=== PATIENT | male | born 1935 | race Caucasian/White ===

== ENCOUNTER 2017-11-22 00:23 | Inpatient (IN) | payer MEDICARE ==
[~2017-11-22] VITALS: Ht 172.7 cm; Wt 109.7 kg
[2017-11-22] VITALS (7 sets, daily range): BP systolic 100–127; BP diastolic 40–58
[2017-11-22] MEDS ORDERED: SENNA8.6 MG (00:37)
[2017-11-22] MEDS ORDERED: TRAMADOL 50 MG50 MG PO (00:37)
[2017-11-22] MEDS ORDERED: MIRALAX17 GM (00:37)
[2017-11-22] MEDS ORDERED: ALBUTEROL2.5 MG/0.5 (00:37)
[2017-11-22] MEDS ORDERED: ASPIR 8181 MG (00:38)
[2017-11-22] MEDS ORDERED: VITAMIN D3 COM1 EACH (00:38)
[2017-11-22] MEDS ORDERED: PLAVIX 75 MG TA75 M1 (00:39)
[2017-11-22] MEDS ORDERED: VITAMIN B-121000 MC3 (00:39)
[2017-11-22] MEDS ORDERED: LASIX 40 MG TAB40 M2 (00:40)
[2017-11-22] MEDS ORDERED: NEURONTIN600 MG (00:40)
[2017-11-22] MEDS ORDERED: COLACE100 MG (00:40)
[2017-11-22] MEDS ORDERED: PROSCAR 5MG TABL5 MG (00:40)
[2017-11-22] MEDS ORDERED: PERCOCET 10-321 EACH (00:41)
[2017-11-22] MEDS ORDERED: METFORMIN HCL500 MG PO (00:41)
[2017-11-22] MEDS ORDERED: KLOR-CON 1010 MEQ (00:41)
[2017-11-22] MEDS ORDERED: ZOCOR20 MG (00:42)
[2017-11-22] MEDS ORDERED: FLOMAX0.4 MG (00:42)
[2017-11-22] MEDS ORDERED: PHENERGAN 25 MG25 M1 (00:42)
[2017-11-22] MEDS ORDERED: SPIRONOLACTONE25 M1 (00:42)
[2017-11-22] MEDS ORDERED: ZANAFLEX4 MG (00:42)
[2017-11-22] MEDS ORDERED: IPRAT-ALBUT 0.5-3 ML (00:43)
[2017-11-22] MEDS ORDERED: CO Q-10100 MG (00:43)
[2017-11-22] MEDS ORDERED: LANTUS100 UNIT/M (00:43)
[2017-11-22] MEDS ORDERED: INCRUSE ELLI62.5 MCG (00:43)
[2017-11-22] MEDS ORDERED: HUMALOG100 UNIT/1 (00:44)
[2017-11-22] MEDS ORDERED: REMEDY ANTIFUN TOP (00:45)
[2017-11-22 00:57] LABS: HEMATOCRIT 26.5 % (42.0-52.0); HEMOGLOBIN 8.9 gm/dL (14.0-18.0); MCH 29.8 pg (26.0-34.0); MCHC 33.6 g/dL (28.0-37.0); MCV 88.8 fL (80.0-100.0); MPV 7.3 fl. (7.2-11.1); NUCLEATED RBCS 0 /100WBC; PLATELET COUNT* 312 thou/uL (150-400); RBC 2.98 mil/uL (4.50-6.00); WBC 20.2 thou/uL (4.0-11.0)
[2017-11-22 00:58] LABS: HCO3 21.4 mmol/L (22.0-26.0); PCO2 31.7 mmHg (35.0-45.0); PO2 73.9 mmHg (75.0-100.0); pH 7.447 (7.340-7.450)
[2017-11-22 01:08] LABS: ANION GAP 9 mmol/L (7-16); BUN 32 mg/dL (7-18); CALCIUM 8.4 mg/dL (8.5-10.1); CHLORIDE 98 mmol/L (98-107); CO2 25 mmol/L (21-32); CREATININE 1.8 mg/dL (0.6-1.3); GLUCOSE 133 mg/dL (70-99); POTASSIUM 4.7 mmol/L (3.5-5.1); SODIUM 132 mmol/L (136-145)
[2017-11-22 01:10] LABS: PROTIME 10.2 Seconds (9.20-11.50)
[2017-11-22 01:19] LABS: ALBUMIN 2.7 g/dL (3.4-5.0); ALKALINE PHOSPHATASE 78 U/L (46-116); LIPASE 67 U/L (73-393); NT-PRO BRAIN NAT PEPTIDE 1434 pg/mL (<300); SGOT 14 U/L (15-37); SGPT 13 U/L (30-65); TOTAL BILIRUBIN 0.4 mg/dL (<0.1-1.0); TOTAL PROTEIN 6.5 g/dL (6.4-8.2); TROPONIN-I LEVEL <0.06 ng/mL (<0.06)
[2017-11-22 01:58] LABS: ABSOLUTE LYMPHOCYTES 1.8 thou/uL (0.8-5.3); ABSOLUTE MONOCYTES 0.8 thou/uL (0.0-1.2); ABSOLUTE NEUTROPHILS 17.6 thou/uL (1.6-8.1)
[2017-11-22 01:59] LABS: PLATELET ESTIMATE ADEQUATE
--- NOTE | 2017-11-22 05:13 | NUR ---
REPORT RECEIVED FROM AUGUSTUS. PATIENT RESTED IN BED, NO ACUTE CHANGES. PATIENT DID NOT SHOW SIGNS OF DISTRESS. FALL PRECAUTIONS IN PLACE, CALL LIGHT WITH IN REACH, HOURLY ROUNDING OBSERVED. PATIENT WAS ABLE TO WALK TO BATHROOM AND BACK WITH ASSIST. BED ALARM IS ON. PATIENT HAD BOWEL MOVEMENT. PATIENT IS SHOWING SIGNS OF INCREASED ORIENTATION.
--- NOTE | 2017-11-22 11:04 | EKG ---
[place] [address] ELECTROCARDIOGRAM REPORT Name: JV DEMARCO V Room: [place] [address] ADM IN M.R.#: [id number] Admission: 11/22/17 Attend Phys: Gisela Fermin MD Discharge: Date of : 31 Report #: [id number] THIS REPORT FOR: //name// [facility] ED Test Date: 2017-11-22 Test Time: 00:33:41 Pat Name: JV DEMARCO Department: Room: [facility] Gender: M Pond Tender: GL : 1935 Requested By: Shiela Huynh Order Number: [id number] MD: Govind Jarrell Measurements Intervals Feura Bush Rate: 85 P: 45 HI: 210 QRS: -47 QRSD: 99 T: 44 QT: 332 QTc: 395 Interpretive Statements Sinus rhythm Atrial premature complexes Left axis deviation Abnormal lateral Q waves Anterior infarct, old Baseline wander in lead(s) V4,V5 No previous ECG available for comparison Electronically Signed On 11-22-2017 11:04:30 CDT by Govind Jarrell [email or web address] <ELECTRONICALLY SIGNED> By: Govind Jarrell MD, FAC 11/22/17 1104 0033 0033 Govind Jarrell MD, [facility] /EPI
--- NOTE | 2017-11-22 13:28 | 2DMMODE ---
[place] [address] 2 D/M-MODE ECHOCARDIOGRAM Name: JV DEMARCO V Room: [place] [address] ADM IN [facility]#: [id number] Admission: 11/22/17 Attend Phys: Gisela Fermin MD Discharge: Date of : 31 Date of Service: 11/22/17 1328 Report #: [id number] THIS REPORT FOR: //name// APPROVED REPORT Study performed: 11/22/2017 11:03:52 EXAM: Comprehensive 2D, Doppler, and color-flow Echocardiogram Patient Location: In-Patient Room #: [facility] Status: routine BSA: 2.16 HR: 61 bpm BP: 127/58 mmHg Rhythm: NSR Other Information Study Quality: Good Indications Dyspnea confusion, pneumonia 2D Dimensions IVSd: 10.90 (7-11mm) LVOT Diam: 22.85 (18-24mm) LVDd: 52.66 mm PWd: 11.79 (7-11mm) Ascending Ao: 32.62 (22-36mm) LVDs: 33.52 (25-40mm) Aortic Root: 35.68 mm Volumes Left Atrial Volume (Systole) LA ESV Index: 41.10 mL/m2 Aortic Valve AoV Peak Abram.: 1.63 m/s AO Peak Gr.: 10.57 mmHg LVOT Max P.54 mmHg AO Mean Gr.: 5.77 mmHg LVOT Mean P.14 mmHg LVOT Max V: 0.94 m/s AO V2 VTI: 30.30 cm LVOT Mean V: 0.68 m/s THUY (VTI): 2.85 cm2 LVOT V1 VTI: 21.03 cm Mitral Valve E/A Ratio: 1.08 MV Decel. Time: 193.22 [place] [address] 2 D/M-MODE ECHOCARDIOGRAM Name: JV DEMARCO V Room: [address] IN .R.#: [id number] Admission: 11/22/17 Attend Phys: Gisela Fermin MD Discharge: Date of : 31 Date of Service: 11/22/17 1328 Report #: [id number] MV E Max Abram.: 1.22 m/s MV PHT: 56.03 ms MVA (PHT): 3.93 cm2 TDI E/Lateral E': 13.56 E/Medial E': 12.20 Medial E' Abram.: 0.10 m/s Lateral E' Abram.: 0.09 m/s Pulmonary Valve PV Peak Abram.: 1.04 m/s PV Peak Gr.: 4.34 mmHg Tricuspid Valve RAP Estimate: 5.00 mmHg TR Peak Gr.: 33.94 mmHg RVSP: 39.00 mmHg PA Pressure: 39.00 mmHg Left Ventricle The left ventricle is normal size. There is normal LV segmental wall motion. There is normal left ventricular wall thickness. Left ventricular systolic function is normal. The left ventricular ejection fraction is within the normal range. LVEF is 60-65%. The left ventricular diastolic function is normal. Right Ventricle The right ventricle is normal size. The right ventricular systolic function is normal. Pacemaker lead is present in the right ventricle. Atria The left atrium size is normal. The right atrium size is normal. Aortic Valve Mild aortic valve sclerosis. No aortic regurgitation is present. There is no aortic valvular stenosis. Mitral Valve The mitral valve is normal in structure. Trace mitral regurgitation. No evidence of mitral valve stenosis. Tricuspid Valve The tricuspid valve is normal in structure. Trace tricuspid regurgitation. Mild pulmonary hypertension. Pulmonic Valve The pulmonary valve is normal in structure. There [place] [address] 2 D/M-MODE ECHOCARDIOGRAM Name: JV DEMARCO V Room: [address] IN [facility]#: [id number] Admission: 11/22/17 Attend Phys: Gisela Fermin MD Discharge: Date of : 31 Date of Service: 11/22/17 1328 Report #: [id number] valvular regurgitation. Great Vessels The aortic root is normal in size. IVC is normal in size and collapses >50% with inspiration. Pericardium There is no pericardial effusion. <Conclusion> The left ventricle is normal size. There is normal left ventricular wall thickness. Left ventricular systolic function is normal. The left ventricular ejection fraction is within the normal range. LVEF is 60-65%. The left ventricular diastolic function is normal. The right ventricle is normal size. The left atrium size is normal. Mild aortic valve sclerosis. No aortic regurgitation is present. There is no aortic valvular stenosis. The mitral valve is normal in structure. Trace mitral regurgitation. The tricuspid valve is normal in structure. IVC is normal in size and collapses >50% with inspiration. There is no pericardial effusion. There is normal LV segmental wall motion. Pacemaker lead is present in the right ventricle. <ELECTRONICALLY SIGNED> By: Govind Jarrell MD, FACC 11/22/17 1328 1328 1328 Govind Jarrell MD, FACC /INF
[2017-11-22 15:26] LABS: URINE BILIRUBIN NEGATIVE (Negative); URINE BLOOD NEGATIVE (Negative); URINE CLARITY CLEAR; URINE COLOR YELLOW; URINE GLUCOSE-RANDOM NEGATIVE (Negative); URINE KETONES NEGATIVE (Negative); URINE LEUKOCYTES-REFLEX NEGATIVE (Negative); URINE NITRITE-REFLEX NEGATIVE (Negative); URINE PROTEIN NEGATIVE (Negative); URINE SPECIFIC GRAVITY 1.015 (1.005-1.030); URINE UROBILINOGEN 0.2 E.U./dl (0.2-1.0)
--- NOTE | 2017-11-22 16:13 | NUR ---
INITIAL ASSESSMENT: Pt evaluated for d/c planning needs. Reviewed chart and spoke with nurse, pt and pt's of 25 years. Pt was hospitalized at [facility], and went to [facility] on d/c. Pt has been at [facility] for about a week. Spoke with stroke program coordinator at [facility] and they will accept pt back on d/c from hospital. Spouse said that pt had been living at home with her prior to previous hospitalization and was managing at home. She is hopeful pt will be able to return to [facility] for continued therapy on d/c from hospital, with plans to return home after SNF. Will remain available to assist as needed.
--- NOTE | 2017-11-22 19:47 | NUR ---
RECEIVED REPORT FROM NIGHT NURSE. ASSUMED CARE OF PT AROUND O730. PT A&O X4, VSS, O2 SAT >90% ON 3L PER NC. SOIL EXPERT IN PLACE TRACING A PACED TO AV PACED THIS SHIFT. IV INTACT. PT TOLERATING DIET. PT REPORTED CHRONIC BACK PAIN THIS SHIFT BUT DENIED NEED FOR MEDICATION FOR PAIN. AT BEDSIDE THIS AFTERNOON TO EVENING. STATED TO NURSING STAFF "BE SURE TO CALL ME IF YOU NEED ANYTHING IN THE NIGHT RELATING TO JV". PT UP WITH ASSIST X1 TO VOID AND HAVE BM. PT ALSO USING URINAL TO VOID. PT COMPLETED ECHO AND VQ SCAN THIS SHIFT. PT CURRENTLY WATCHING TV IN BED. CALL LIGHT IS WITHIN REACH. HOURLY ROUNDING IN PLACE. FALL PRECAUTIONS MAINTAINED.
[2017-11-23] VITALS: BP 104/47
--- NOTE | 2017-11-23 03:47 | NUR ---
PATIENT RESTED IN BED. PATIENT DENIES SHORTNESS OF AIR. PATIENT O2 LEVEL DECREASED. PATIENT OXYGEN WAS INCREASED TO 6 LITERS. PAIENT O2 LEVEL IS CURRENTLY WITH IN NORMAL. NO OTHER ACUTE CHANGES. PATIENT DOES NOT APPEAR TO BE IN DISTRESS. FALL PRECAUTIONS IN PLACE, CALL LIGHT WITH IN REACH, HOURLY ROUNDING OBSERVED, BED ALARM ON.
[2017-11-23 04:00] VITALS: BP 100/49
[2017-11-23 05:43] LABS: ABSOLUTE BASOPHILS 0.1 thou/uL (0.0-0.2); ABSOLUTE EOSINOPHILS 0.3 thou/uL (0.0-0.7); ABSOLUTE LYMPHOCYTES 0.9 thou/uL (0.8-5.3); ABSOLUTE MONOCYTES 0.9 thou/uL (0.0-1.2); ABSOLUTE NEUTROPHILS 7.4 thou/uL (1.6-8.1); BASOPHILS 0.6 %; EOSINOPHILS 3.1 %; HEMATOCRIT 22.6 % (42.0-52.0); HEMOGLOBIN 7.7 gm/dL (14.0-18.0); LYMPHOCYTES 9.3 %; MCH 30.1 pg (26.0-34.0); MCHC 33.9 g/dL (28.0-37.0); MCV 88.6 fL (80.0-100.0); MONOCYTES 9.1 %; MPV 7.4 fl. (7.2-11.1); NUCLEATED RBCS 0 /100WBC; PLATELET COUNT* 244 thou/uL (150-400); POLYS 77.9 %; RBC 2.55 mil/uL (4.50-6.00); RDW-CV 13.7 % (10.5-14.5); WBC 9.4 thou/uL (4.0-11.0)
[2017-11-23 05:54] LABS: CALCIUM 7.9 mg/dL (8.5-10.1); CREATININE 1.5 mg/dL (0.6-1.3); POTASSIUM 4.2 mmol/L (3.5-5.1)
--- NOTE | 2017-11-23 07:43 | CON ---
[address] [address] CONSULTATION Name: JV DEMARCO V Room: [address] IN M.R.#: [id number] Admission: 11/22/17 Attend Phys: Gisela Fermin MD Discharge: Date of : 33 Report #: [id number] THIS REPORT FOR: //name// CC: Gisela Morrissey DATE OF SERVICE: 11/22/2017 REQUESTING PHYSICIAN: Dr. Fermin. REASON FOR CONSULTATION: Shortness of breath and infiltrates. DISCUSSION: The patient is a pleasant 82-year-old man with a remote history of tobacco abuse. He does carry a diagnosis of COPD as well as obstructive sleep apnea and congestive heart failure. He was hospitalized recently at [facility]. He was treated for heart failure at that time. This time, I do not have a copy of any of his prior echocardiograms. He was discharged on 11/16/2017. My associate, Dr. Moreno, did see him at that time. He was diuresed there. At the time he was discharged, chest x-ray revealed improvements in the congestive heart failure. His proBNP was 861. He had a BUN of 39, creatinine of 1.4. He did not require O2 during the day. He has known history of sleep apnea. According to the discharge notes, he was to continue sleeping with his home CPAP unit at [facility] and bleed-in 2 liters of oxygen. He did not require any oxygen during the day. The patient notes he was actually doing well with the rehab. He was making progress. He had a fairly sudden onset of a fever yesterday evening. O2 saturations fell in the 70s. Apparently, was confused as well. He was sent to the Emergency Department here. He was febrile. He denies having any difficulty swallowing. Denied any cough or sputum production. Denies any chest pain or palpitations. He has not had any dysuria, but he does note he has had some trouble passing his urine, more so than the baseline. No urine specimen has been obtained yet. When evaluated in the ED, was placed on oxygen. Chest x-ray this morning showed cardiomegaly with diffuse alveolar infiltrates. He had white count of 20,200; hemoglobin 8.9; hematocrit of 26.5. Blood cultures have been sent. Antibiotics have been started. Given the x-ray findings, was being initially covered for possible healthcare-associated pneumonia. He is a very remote smoker. At this time, he is just a fair historian. Does acknowledge having some trouble keeping track of things. Our group did see him when he was at [facility] recently. I do not believe he is an office patient. PAST MEDICAL HISTORY: Remarkable for COPD, severity unknown; [place] [address] CONSULTATION Name: JV DEMARCO V Room: [address] IN R.#: [id number] Admission: 11/22/17 Attend Phys: Gisela Fermin MD Discharge: Date of : 33 Report #: [id number] type 2; recurrent exudative pleural effusions requiring VAT approximately 5 years ago; TIA; GERD; SVT; left total knee replacement; skin cancer removals; coronary artery disease; rotator cuff repair; osteoarthritis. MEDICATIONS: Home CPAP, which he has not been consistently using; Senna; MiraLax p.r.n.; tramadol; nebulizer treatments with DuoNeb; insulin; Zanaflex; Incruse; simvastatin; spironolactone; potassium, p.r.n. oxycodone; metformin; gabapentin; Lasix; Proscar; docusate; B12; Plavix; multivitamins; baby aspirin. SOCIAL HISTORY: . Very remote smoker, quitting about 1993. He is retired from [employer]. REVIEW OF SYSTEMS: ROS was done. Question reliability as he still is somewhat vague on things. He is feeling better today. He notes last night he felt like a whale had come down over him and he cannot recall the events. This morning, he denies any chest pain, cough, sputum production. Denies having any difficulty trying to swallow. He is hungry and requesting more than just straight liquids. He has noted some difficulty trying to pass his urine. This is new for him. He is not having any true dysuria. He did not note any blood in the stools. Denies any hemoptysis. He notes he was making progress with physical therapy at [facility]. He cannot recall what his last cardiac testing had shown. He currently do not have those results from [facility]. PHYSICAL EXAMINATION: GENERAL APPEARANCE: A male who looks stated age. Alert, conversant. His O2 running via nasal cannula. Able to speak in full sentences. HEENT: Head is normocephalic. Sclerae are nonicteric. Mucous membranes do look a little dry. No thrush is seen. NECK: Negative for adenopathy. No JVD is noted. HEART: Regular with periods of irregularity. He has a grade 1/6 systolic murmur. No S3 is heard. LUNGS: Revealed just a few faint crackles heard in the bases. Excursion is equal. There is no wheezing noted. ABDOMEN: Soft without appreciable hepatosplenomegaly. There is no guarding or rebound tenderness. EXTREMITIES: He has no clubbing. Radial pulses are present. He has a well-healed scar present over the left knee. There is some trace pretibial edema. SKIN: Warm and dry. NEUROLOGIC: He is alert and oriented x 3, though his memory for some of the recent events is just fair as he was quite ill when he came in. LABORATORY AND X-RAY FINDINGS: It appears on 11/16/2017, chest x-ray at [facility] showed changes of congestive heart failure were improved. He had a BUN of 39, creatinine of 1.4, potassium 4.1 with a BNP of 861. At that time, his white blood cell count was 12,700, hemoglobin 8.8, hematocrit 26.8[place] [address] CONSULTATION Name: DAVJV Layo Room: [address] IN [facility].#: [id number] Admission: 11/22/17 Attend Phys: Gisela Fermin MD Discharge: Date of : 33 Report #: [id number] room air saturations were in the 90s. Here at [facility], his chemistry this morning, he has a BUN of 32, creatinine 1.8, bicarbonate 25, potassium is 4.7. Calcium 8.4, albumin 2.7. ProBNP 1434. Troponins were unremarkable. Lactic acid was 1.5. Coag studies unremarkable. White blood cell count 20,200. Hemoglobin 8.9, hematocrit 26.9. Does have a left shift. UA is pending. Arterial blood gases done early this morning on 3 liters, he had a pH of 7.45, pCO2 of 32, pO2 of 74, bicarbonate 21 with a saturation of 93%. A chest x-ray shows cardiomegaly. He does have diffuse changes of all consistent with pulmonary edema. Lung scan has been requested and those results are pending. IMPRESSION: 1. Status post acute respiratory failure. Clinically, improved today. Did have a fever up to 102.6. Exact source not clear. Could be pneumonia, though he has not had any cough or sputum production. Possible urine. 2. History of chronic obstructive pulmonary disease, severity unknown. He has not been O2 or steroid dependent. 3. Obstructive sleep apnea. Does have home CPAP. It does not appear he has been overly compliant with that. 4. History of congestive heart failure and atrial arrhythmias. Status of LV unknown. 5. Mild anemia. 6. History of cerebrovascular accidents. 7. Diabetes mellitus type 2. 8. Chronic renal insufficiency. 9. Past history of exudative pleural effusions. Status post VAT. RECOMMENDATIONS: 1. Obtain additional records from [facility]. 2. Follow up cultures. Does need urine checked as well as urine cultures. 3. Continue neb treatments. 4. Activity as tolerated. 5. CPAP while sleeping. <ELECTRONICALLY SIGNED> By: Fatoumata Jimenes MD 11/23/17 0743 [id number] [id number] Jimenes MD /nt
[2017-11-23 08:00] VITALS: BP 111/51
[2017-11-23 11:37] VITALS: BP 105/41
[2017-11-23 13:51] LABS: INFLUENZA A ANTIGEN None Detected (None Detect); INFLUENZA B ANTIGEN None Detected (None Detect)
--- NOTE | 2017-11-23 15:15 | NUR ---
PT O2 SATS IN UPPER 50S AND LOW 60S. PT RESTING IN BED TALKING TO . NO APPARENT DISTRESS. RT PAGED. DR SMITH PAGED AND TO BS
[2017-11-23 15:38] VITALS: BP 131/52
[2017-11-23 15:39] LABS: BE -0.8 mmol/L (-2 to +3); HCO3 23.2 mmol/L (22.0-26.0); PCO2 35.6 mmHg (35.0-45.0); PO2 60.5 mmHg (75.0-100.0); pH 7.432 (7.340-7.450)
--- NOTE | 2017-11-23 15:53 | NUR ---
PT O2 SATS INCREASE TO MID LOWS AFTER O2 @15L HFNC. NO APPARENT DISTRESS. AT BS.
--- NOTE | 2017-11-23 17:50 | NUR ---
PT RESTING IN BED THROUGHOUT SHIFT. PT UP TO CHAIR THIS AFTERNOON BUT SOA AND DESATS QUICKLY. PT ON O2@15 L HFNC. AT BS AND UPDATED ON PLAN OF CARE
[2017-11-23 20:00] VITALS: BP 113/50
[2017-11-24] VITALS: BP 107/47
--- NOTE | 2017-11-24 01:25 | NUR ---
PATIENT RESTED IN BED. PATIENT O2 LEVEL DECREASED TO 80'S WHILE WEARING HOME CIPAP. PATIENT DENIED SHORTNESS OF BREATH, PATIENT PLACE ON BIPAP. O2 LEVEL RETURNED TO NORMAL. FALL PRECAUTIONS IN PLACE, CALL LIGHT WITH IN REACH, HOURLY ROUNDING OBSERVED, BED ALARM ON.
[2017-11-24 04:00] VITALS: BP 118/59
[2017-11-24 04:53] LABS: ABSOLUTE BASOPHILS 0.1 thou/uL (0.0-0.2); ABSOLUTE EOSINOPHILS 0.4 thou/uL (0.0-0.7); ABSOLUTE LYMPHOCYTES 1.5 thou/uL (0.8-5.3); ABSOLUTE NEUTROPHILS 7.1 thou/uL (1.6-8.1); BASOPHILS 0.6 %; EOSINOPHILS 3.8 %; HEMATOCRIT 22.4 % (42.0-52.0); HEMOGLOBIN 7.8 gm/dL (14.0-18.0); LYMPHOCYTES 14.5 %; MCH 30.8 pg (26.0-34.0); MCHC 34.7 g/dL (28.0-37.0); MCV 88.9 fL (80.0-100.0); MONOCYTES 10.2 %; MPV 7.8 fl. (7.2-11.1); NUCLEATED RBCS 0 /100WBC; PLATELET COUNT* 262 thou/uL (150-400); POLYS 70.9 %; RBC 2.52 mil/uL (4.50-6.00); RDW-CV 14.1 % (10.5-14.5)
[2017-11-24 05:15] LABS: CALCIUM 8.3 mg/dL (8.5-10.1); CREATININE 1.6 mg/dL (0.6-1.3); POTASSIUM 4.1 mmol/L (3.5-5.1)
[2017-11-24 08:00] VITALS: BP 104/51
--- NOTE | 2017-11-24 10:45 | NUR ---
RECEIVED REPORT FROM ANNE AND ASSUMED CARE OF PT @ 9515.PT IS A/O X2,VSS,TRACING AV PACED WITH 1ST DEGREE AND PVCS.LUNG SOUNDS ARE COARSE DIMINSHED.LAST BM WAS 11/22/17.IV PATENT AND SALINE LOCKED.PT IS CALM AND COOPERATIVE WITH NO C/O PAIN AT TIME OF ASSESSMENT.PT IS UP WITH ONE TO TWO ASSIST TO CHAIR.PT LEFT RESTING IN BED WITH CALL LIGHT AND FALL PRECAUTIONS IN PLACE.WILL CONTINUE TO MONITOR.
[2017-11-24 12:30] VITALS: BP 111/57
--- NOTE | 2017-11-24 14:39 | NUR ---
CONTINUE TO FOLLOW. PT REMAINS ON HIGH FL O2. TALKED WITH . ANTICIPATE DC TO [facility] WHEN STABLE. UPDATE TO [facility], LEFT VMAIL. WILL FOLLOW.
[2017-11-24 16:34] VITALS: BP 112/57
[2017-11-24 16:44] LABS: URINE BILIRUBIN NEGATIVE (Negative); URINE BLOOD NEGATIVE (Negative); URINE CLARITY CLEAR; URINE COLOR YELLOW; URINE GLUCOSE-RANDOM NEGATIVE (Negative); URINE KETONES NEGATIVE (Negative); URINE LEUKOCYTES-REFLEX NEGATIVE (Negative); URINE NITRITE-REFLEX NEGATIVE (Negative); URINE PROTEIN NEGATIVE (Negative); URINE SPECIFIC GRAVITY 1.015 (1.005-1.030); URINE UROBILINOGEN 0.2 E.U./dl (0.2-1.0)
--- NOTE | 2017-11-24 18:15 | NUR ---
VSS,CARDIAC MONITORING IN PLACE WITH NO CHANGES.PT WEENED DOWN FROM NON-REBREATHER TO 13L O2 NC.PAIN MANAGED WELL WITH PO MEDICATIONS.IV ANTIBIOTICS GIVEN.PT WORKED WITH PHYSICAL THERAPY AND GOT UP TO THE CHAIR FOR SEVERAL HOURS.PT INFORMED OF PLAN OF CARE AND COMMUNICATES UNDERSTANDING.HOURLY ROUNDING COMPLETED FOR PT SAFETY.CALL LIGHT AND FALL PRECAUTIONS IN PLACE. WILL CONTINUE TO FOR DURATION OF SHIFT.
[2017-11-24 20:00] VITALS: BP 99/45
[2017-11-25] VITALS: BP 116/56
[2017-11-25 04:00] VITALS: BP 103/46
[2017-11-25 05:00] LABS: ABSOLUTE EOSINOPHILS 0.3 thou/uL (0.0-0.7); ABSOLUTE LYMPHOCYTES 1.3 thou/uL (0.8-5.3); ABSOLUTE MONOCYTES 0.9 thou/uL (0.0-1.2); ABSOLUTE NEUTROPHILS 7.2 thou/uL (1.6-8.1); BASOPHILS 0.3 %; EOSINOPHILS 3.6 %; HEMATOCRIT 22.6 % (42.0-52.0); HEMOGLOBIN 7.6 gm/dL (14.0-18.0); LYMPHOCYTES 13.6 %; MCHC 33.7 g/dL (28.0-37.0); MCV 88.9 fL (80.0-100.0); MONOCYTES 8.8 %; MPV 7.6 fl. (7.2-11.1); NUCLEATED RBCS 0 /100WBC; PLATELET COUNT* 272 thou/uL (150-400); POLYS 73.7 %; RBC 2.54 mil/uL (4.50-6.00); RDW-CV 14.1 % (10.5-14.5); WBC 9.8 thou/uL (4.0-11.0)
--- NOTE | 2017-11-25 05:04 | NUR ---
ASSUMED PT CARE AT 1930. ASSESSMENT COMPLETED CHARTED. ABLE TO MAKE NEEDS KNOW. PT RESTING IN BED THIS SHIFT. C/O BACK PAIN AND GAVE SCHEDULED PAIN MEDICATION PER P.O. HFNC ON, CHEST XRAY COMPLETED THIS MORNING. WILL CONTINUE TO MONITOR.
[2017-11-25 05:26] LABS: ALBUMIN 2.2 g/dL (3.4-5.0); CALCIUM 8.3 mg/dL (8.5-10.1); CREATININE 1.6 mg/dL (0.6-1.3); MAGNESIUM 1.7 mg/dL (1.8-2.4); TOTAL BILIRUBIN 0.4 mg/dL (<0.1-1.0); TOTAL PROTEIN 6.2 g/dL (6.4-8.2)
[2017-11-25 07:50] VITALS: BP 106/48
--- NOTE | 2017-11-25 10:30 | NUR ---
RECEIVED REPORT FROM SVETLANA AND ASSUMED CARE OF PT @ 2078.PT IS A/OX4,VSS TRACING A PACED WITH 1ST DEGREE ON THE MONITOR.LUNG SOUNDS ARE COARSE DIMINSHED.LAST BM WAS 11/22/17.IV PATENT AND SALINE LOCKED.PT IS CALM AND COOPERATIVE WITH C/O PAIN IN BACK.MEDICATIONS GIVEN WITH RELIEF.PT IS UP WITH ONE ASSIST TO THE CHAIR OR BSC.PT LEFT RESTING IN BED WITH CALL LIGHT AND FALL PRECAUTIONS IN PLACE.WILL CONTINUE TO MONITOR.
[2017-11-25 12:10] VITALS: BP 112/57
--- NOTE | 2017-11-25 14:12 | CON ---
[address] [address] CONSULTATION Name: JV DEMARCO V Room: [place] [address] ADM IN M.R.#: [id number] Admission: 11/22/17 Attend Phys: Gisela Fermin MD Discharge: Date of : 33 Report #: [id number] THIS REPORT FOR: //name// CC: Gisela Morrissey DATE OF SERVICE: 11/24/2017 REASON FOR CONSULTATION: Anemia. HISTORY OF PRESENT ILLNESS: The patient is a very pleasant 82-year-old gentleman, who is currently admitted to the hospital since 2 days due to acute respiratory failure. The patient was brought from his detention facility to the Emergency Room due to fever and hypoxia. He was found to have acute respiratory failure, which was likely related to pneumonia with concern for hospital and community-acquired pneumonia along with COPD exacerbation and is feeling better with treatment. The patient was found to have evidence of anemia as well. His hemoglobin on admission was 8.9 and is currently 7.8. The patient's WBC count was found to be 10 g/dL with platelet count of 262. The patient did have iron studies, which showed some iron deficiency with iron saturation of 15%. His total iron level was 29. His folate was 18.7 and vitamin B12 was 388. His creatinine was found to be stable at 1.8, which has decreased to 1.6. Electrolytes were otherwise also almost normal. Urinalysis did not reveal any infection. The patient was started on IV antibiotics along with oral iron in the form of Niferex 150 mg p.o. daily. The patient gives a history of having a bone marrow biopsy last year at [facility]. He also gives a history of following with our partner, Dr. Nehmeiah Montgomery and saw him approximately 1 year ago. The patient does not give any history of other bone marrow abnormalities including plasma cell dyscrasias otherwise. The patient also does not complain of any headaches, dizziness, nausea, vomiting, constipation, diarrhea, chest pain, palpitations, or other significant symptoms at this time. PAST MEDICAL HISTORY: 1. Anemia. 2. Skin cancer removed from face x 2. 3. Diabetes. 4. 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 5. Left shoulder rotator cuff repair in 2002. 6. Right knee surgery in 1992. 7. Following with Dr. Montgomery for pneumonia. FAMILY HISTORY: Positive for diabetes and hypertension in the [place] [address] CONSULTATION Name: DAVJV V Room: [address] IN [facility]#: [id number] Admission: 11/22/17 Attend Phys: Gisela Fermin MD Discharge: Date of : 33 Report #: [id number] significant hematologic disorders in the family. PERSONAL HISTORY: The patient is a former smoker and does not use any alcohol. Does not have a history of recreational drug use. ALLERGIES: IBUPROFEN and PIROXICAM. CURRENT MEDICATIONS: 1. Niferex 150 mg p.o. daily. 2. Furosemide 40 mg p.o. b.i.d. 3. Insulin Humalog q.a.c. and at bedtime as directed. 4. K-Dur 10 mEq p.o. daily. 5. Vancomycin, renally dosed. 6. Gabapentin 300 mg p.o. t.i.d. 7. Ultram 100 mg p.o. b.i.d. 8. Lovenox 30 mg subcutaneously at bedtime. 9. Zanaflex 4 mg p.o. q.i.d. 10. DuoNeb inhalation every 4 hours as needed. 11. Flomax 0.4 mg p.o. daily. 12. Spironolactone 25 mg p.o. daily. 13. Plavix 75 mg p.o. daily. 14. Cefepime 2 grams IV daily. 15. Aspirin 81 mg p.o. daily. 16. MiraLax 17 grams p.o. b.i.d. 17. Percocet 1 tablet p.o. q.6 hours as needed. 18. Finasteride 5 mg p.o. daily. 19. DuoNeb inhalation every 4 hours. 20. Acetaminophen 650 mg p.o. q.4 hours as needed. REVIEW OF SYSTEMS: A 13-point review of systems obtained. These were negative for any findings except for those discussed in the HPI. PHYSICAL EXAMINATION: VITAL SIGNS: Temperature today was 36.8 degrees centigrade, pulse was 56 beats per minute, respiratory rate was 18 breaths per minute, blood pressure was 112/57 mmHg. GENERAL: Awake, alert, oriented x 3, no apparent distress. HEENT: EOMI/PERRL. Nasal cannula in place. LYMPHATICS: No lymphadenopathy in the neck or supraclavicular areas. CHEST: Clear bilaterally. CARDIOVASCULAR: Regular rate and rhythm. ABDOMEN: Soft, bowel sounds positive. MUSCULOSKELETAL: No significant arthropathy. Gait normal. NEUROLOGIC: No evidence of any focal neurological deficit. INTEGUMENTARY: No evidence of rash or other skin changes. [address] [address] CONSULTATION Name: JV DEMARCO V Room: [address] IN [facility]#: [id number] Admission: 11/22/17 Attend Phys: Gisela Fermin MD Discharge: Date of : 33 Report #: [id number] ASSESSMENT AND PLAN: The patient is a very pleasant 82-year-old male who has a history of following with our partner, Dr. Montgomery, previously for anemia. The patient had a bone marrow biopsy one year ago and is not aware of the results. The patient is currently anemic with evidence of iron deficiency. I agree with oral iron administration given the mild to moderate degree of iron deficiency at this time. I will look for other causes of anemia including MMA as his B12 level is normal along with RBC, folate. I will also plan to complete his myeloma workup with serum protein electrophoresis and immunofixation. I will also plan to check his markers of inflammation including ESR and CRP. I will also plan to review his records at [facility] to determine his bone marrow biopsy results from 1 year ago and the need for repeat bone marrow biopsy or follow up with Dr. Montgomery. This plan was discussed with the patient in detail and all of his questions answered to his satisfaction. I would recommend keeping his hemoglobin above 7 g/dL to minimize symptoms from anemia. Thank you for allowing us to participate in care of this pleasant patient. <ELECTRONICALLY SIGNED> By: Marques Sainz MD 11/25/17 1412 1843 [id number] Kelvin Sainz MD /nt
[2017-11-25 16:00] VITALS: BP 120/51
--- NOTE | 2017-11-25 16:56 | NUR ---
VSS,CARDIAC MONITORING IN PLACE WITH NO CHANGES.PT IS ON 15L O2 NC DUE TO SLEEP APNEA AND REFUSAL TO WEAR HOME CPAP OR HOSPITAL BIPAP.PAIN MANAGED WELL WITH PO MEDICATIONS.IV PATENT AND SALINE LOCKED.IV ANTIBIOTICS GIVEN.MRSA NASAL SWAB COLLECTED.PT WORKED WITH PHYSICAL THERAPY AND WAS UP TO CHAIR.HOURLY ROUNDING COMPLETED FOR PT SAFETY.CALL LIGHT AND FALL PRECAUTIONS IN PLACE.WILL CONTINUE TO MONITOR FOR DURATION OF SHIFT.
[2017-11-25 20:00] VITALS: BP 87/33
[2017-11-26] VITALS (12 sets, daily range): BP systolic 97–139; BP diastolic 37–57
--- NOTE | 2017-11-26 03:17 | NUR ---
ASSUMED PT CARE AT 1930. ASSESSMENT COMPLETED CHARTED. PT DROWSY ALL NIGHT, [id number], PT HAS BEEN INCONTINENT DUE TO NOT FEELING WELL AND NOT ABLE TO MAKE HIS NEEDS KNOWN. PT ON BIPAP AT THIS TIME DURING SLEEP. WILL CONTINUE TO MONITOR.
[2017-11-26 04:53] LABS: HEMATOCRIT 22.4 % (42.0-52.0); HEMOGLOBIN 7.6 gm/dL (14.0-18.0); MCHC 33.7 g/dL (28.0-37.0); MPV 7.6 fl. (7.2-11.1); NUCLEATED RBCS 0 /100WBC; PLATELET COUNT* 254 thou/uL (150-400); RBC 2.51 mil/uL (4.50-6.00); RDW-CV 14.3 % (10.5-14.5); WBC 11.4 thou/uL (4.0-11.0)
[2017-11-26 05:02] LABS: ALBUMIN 2.3 g/dL (3.4-5.0); CALCIUM 8.5 mg/dL (8.5-10.1); CREATININE 1.8 mg/dL (0.6-1.3); MAGNESIUM 1.9 mg/dL (1.8-2.4); POTASSIUM 4.5 mmol/L (3.5-5.1); TOTAL BILIRUBIN 0.5 mg/dL (<0.1-1.0); TOTAL PROTEIN 6.6 g/dL (6.4-8.2)
[2017-11-26 06:29] LABS: ABSOLUTE LYMPHOCYTES 0.5 thou/uL (0.8-5.3); ABSOLUTE MONOCYTES 0.3 thou/uL (0.0-1.2); ABSOLUTE NEUTROPHILS 10.6 thou/uL (1.6-8.1); ATYPICAL LYMPHS 1 %
[2017-11-26 06:30] LABS: POLYCHROMASIA 1+
[2017-11-26 06:31] LABS: MACROCYTES 1+; PLATELET ESTIMATE ADEQUATE
[2017-11-26 06:32] LABS: POIKILOCYTOSIS 1+
--- NOTE | 2017-11-26 08:30 | NUR ---
ASSUMED PT. CARE AND RECEIVED REPORT AT 0730. PT A/OX4, VSS, MONITOR ON TRACING SR 1ST. PT. C/O PAIN IN BACK 09/15 CURRENTLY. ON NRB MASK @ 98% WITH CONGESTED COUGH AND COARSE LUNG RODRIGES. FULL ASSESSMENT COMPLETED, REFER TO CHARTING. FALL PRECAUTIONS IN PLACE, WILL CONTINUE WITH PLAN OF CARE.
--- NOTE | 2017-11-26 10:00 | NUR ---
PT. CHANGED TO HFNC @ 15L TO EAT BREAKFAST. APPROX. 10 MINUTES LATER PT. O2 MID 70'S. PT. PLACED BACK ON NRB MASK AT >90%
[2017-11-26 12:59] LABS: BE -1.1 mmol/L (-2 to +3); HCO3 23.8 mmol/L (22.0-26.0); PCO2 40.1 mmHg (35.0-45.0); PO2 61.5 mmHg (75.0-100.0); pH 7.391 (7.340-7.450)
--- NOTE | 2017-11-26 13:05 | CON ---
[address] [address] CONSULTATION Name: JV DEMARCO V Room: [address] IN M.R.#: [id number] Admission: 11/22/17 Attend Phys: Gisela Fermin MD Discharge: Date of : 31 Report #: [id number] THIS REPORT FOR: //name// CC: Gisela Morrissey DATE OF SERVICE: 11/25/2017 INFECTIOUS DISEASE CONSULTATION: REASON FOR CONSULTATION: I was asked to evaluate for bilateral pulmonary infiltrates. HISTORY OF PRESENT ILLNESS: The patient is an 82-year-old with underlying COPD, obstructive sleep apnea, congestive heart failure history hospitalized at [facility] with congestive heart failure. Discharged to acute rehab on 11/16/2017. Once there, he developed worsening shortness of breath and is now hospitalized for further evaluation. He also noted acute onset of fever and chills. He had associated confusion. He has had minimal cough or sputum production. Denies any pleuritic chest pain or hemoptysis. He remains on oxygen per nasal cannula. No pharyngitis symptoms. No postnasal drip. He has had some difficulty swallowing. His chest x-ray showed bilateral pulmonary infiltrates. Since being hospitalized here for last 3 days, his initial temperature was 102.6 degrees and he has been afebrile since. He has been treated with vancomycin and cefepime. His sputum culture has shown normal malik including yeast. His blood cultures remain negative. His chest x-ray showed cardiomegaly with right lateral pleural fluid and extensive bilateral pulmonary infiltrates. He has some consolidation in the right mid and upper lung, which has progressed. He has had a V/Q scan, which was low probability. He has had ultrasound of lower extremity, which showed no evidence of DVT and he has had an ultrasound of the kidneys, which were unremarkable other than distended urinary bladder. PAST MEDICAL HISTORY: COPD, diabetes, congestive heart failure, stroke, chronic kidney disease, coronary artery disease, hyperlipidemia, has had COPD and obstructive sleep apnea, right knee surgery, left shoulder rotator cuff surgery, skin cancers removed. FAMILY HISTORY: Noncontributory. SOCIAL HISTORY: He is a past smoker. No significant alcohol intake. ALLERGIES: IBUPROFEN AND PIROXICAM. MEDICATIONS: As noted on his MAR including vancomycin and cefepime [place] [address] CONSULTATION Name: DAVJV V Room: [address] IN [facility]#: [id number] Admission: 11/22/17 Attend Phys: Gisela Fermin MD Discharge: Date of : 33 Report #: [id number] REVIEW OF SYSTEMS: Denies any neurologic issues, mood disorder, skin rashes, lymphadenopathy. He denies any diabetes or thyroid disease. No bleeding disorder. PULMONARY: As above. CARDIOVASCULAR: As above. GASTROINTESTINAL: Negative. GENITOURINARY: Negative. JOINTS: Negative. PHYSICAL EXAMINATION: GENERAL: The patient was sitting up in his chair, alert and cooperative, pleasant, no acute distress, on oxygen per nasal cannula. HEENT: Eyes were nonicteric with no conjunctivitis. MOUTH: Edentulous with dentures in place with no other lesions. NECK: Supple, with no JVD, thyromegaly, or mass. BACK: Nontender. No CVA tenderness. LUNGS: With bibasilar crackles, left greater than right. Decreased breath sounds in the right base posteriorly. No consolidation and no rub. Anterior chest showed a permanent pacemaker. HEART: Regular, without murmur, gallop or rub. ABDOMEN: Obese, soft, nontender, no hepatosplenomegaly or mass. EXTREMITIES: He had no significant peripheral edema. Extremities otherwise unremarkable with no cyanosis. NEUROLOGIC: Nonfocal with normal cranial nerves. Strength was normal. Sensation intact. Mood was normal. No palpable adenopathy. SKIN: Without rash. LABORATORY STUDIES: Mostly as noted above. Sedimentation rate 126. BNP was 3700. CRP was 165. Sodium 131, potassium 4, bicarbonate 28, creatinine 1.6. Liver function tests normal. Albumin at 2.2, hemoglobin 7.6, white count was 9.8, platelet count was 272,000. Urinalysis unremarkable. Sputum again showed normal malik. Blood cultures are negative. Vancomycin trough was 14. Influenza swab was negative. Immunoglobulins are pending. SPEP pending. MRSA screen negative. IMPRESSION: An 82-year-old with progressive pulmonary infiltrates. Cultures remain negative. No MRSA colonization identified. The patient has been hospitalized for an extended period of time. He initially did have fever, but he has had no leukocytosis. No evidence of urinary tract infection or intra-abdominal infection. I am suspecting that most of his pulmonary infiltrates are due to congestive heart failure. The echocardiogram showed a normal EF, however, and the diastolic function was normal. Noncardiogenic pulmonary edema would also be a consideration then. Infectious etiology due to [place] [address] CONSULTATION Name: JV DEMARCO V Room: [place] [address] ADM IN M.R.#: [id number] Admission: 11/22/17 Attend Phys: Gisela Fermin MD Discharge: Date of : 33 Report #: [id number] RECOMMENDATION: Since no evidence of MRSA has been identified, we will discontinue the vancomycin. We will switch to Zosyn for gram-negative coverage and aspiration potential. I would still consider diuresis as much as possible. It is noted that his BNP was elevated. He does have evidence of chronic kidney disease. We will also check for viral respiratory panel and legionella. <ELECTRONICALLY SIGNED> By: Baljeet Vidales MD 11/26/17 1305 1715 [id number] Vidales MD /nt
[2017-11-26 17:21] LABS: CALCIUM 8.3 mg/dL (8.5-10.1); POTASSIUM 4.2 mmol/L (3.5-5.1)
--- NOTE | 2017-11-26 20:05 | NUR ---
RN RESUMED CARE OF PT THIS AFTERNOON WHEN PT TRANSFERRED FROM MEDICAL UNIT TO ICU DUE TO INCREASED WORK OF BREATHING AND 02 NEEDS. PT ON HIGH FLOW NASAL CANNULA WITH HUMIDITY AND TOLERATING WELL, O2 SATS IN THE MID 90'S. TOLERATING PO INTAKE WITHOUT SIGNS OF ASPIRATION. PETTY IN PLACE DUE TO BLADDER DISTENTION AND 850CC OUT THIS SHIFT. VSS. AFEBRILE. PT ALERT AND ORIENTED TO PERSON AND PLACE. DISORIENTED TO TIME AND WAXES AND WEANS REGARDING SITUATION. PT DENIES PAIN. FAMILY AT BEDSIDE AND DENIES FURTHER QUESTIONS/CONCERNS.
[2017-11-27] VITALS (12 sets, daily range): BP systolic 84–130; BP diastolic 36–62
[2017-11-27 04:16] LABS: HEMATOCRIT 22.5 % (42.0-52.0); HEMOGLOBIN 7.6 gm/dL (14.0-18.0); MCHC 33.9 g/dL (28.0-37.0); MCV 88.5 fL (80.0-100.0); MPV 7.2 fl. (7.2-11.1); RBC 2.55 mil/uL (4.50-6.00); RDW-CV 14.3 % (10.5-14.5); WBC 14.4 thou/uL (4.0-11.0)
[2017-11-27 04:36] LABS: ALBUMIN 2.3 g/dL (3.4-5.0); CALCIUM 8.7 mg/dL (8.5-10.1); MAGNESIUM 2.2 mg/dL (1.8-2.4); POTASSIUM 4.3 mmol/L (3.5-5.1); TOTAL BILIRUBIN 0.4 mg/dL (<0.1-1.0); TOTAL PROTEIN 6.5 g/dL (6.4-8.2)
--- NOTE | 2017-11-27 06:27 | NUR ---
PROGRESSING TOWARD GOALS. VSS. BIPAP AT HS, OFF AT 0600 PER PT REQUEST. PT NOW ON HFC WITH HUMIDIFIED HEATED CIRCUIT AT THIS TIME. O2 SAT REMAINED >90% ON HFC & BIPAP, DESATS QUICKLY WHEN ON RA BRIEFLY. PT APPEARED TO SLEEP WELL THROUGH THE NIGHT. AFEBRILE. CALL LIGHT WITHIN REACH.
--- NOTE | 2017-11-27 18:43 | NUR ---
INTERDISCIPLINARY ROUNDS: PT.TRANSFERRED TO ICU LAST EVENING DUE TO INCREASE O2 REQUIREMENTS. HE IS ORIENTED WHEN AWAKE. HE STILL PLANS TO RETURN TO [facility] WHEN HE IS READY FOR DISCHARGE FROM THE HOSPITAL.
--- NOTE | 2017-11-27 18:56 | NUR ---
PT TRANS TO ROOM 211 VIA BED FROM ICU. VSS THROUGHOUT SHIFT. PT VERY SOA WITH MOVEMENT IN BED. PT DESATS WHILE EATING WELL. PT REMAINS ON HIGHFLOW AT 35%. PAIN WELL CONTROLLED WITH SCHEDULED PAIN MEDICATION. NO OTHER COMPLAINTS OF PAIN. REPORT GIVEN TO [employer] SALES CONSULTANT.
[2017-11-27 21:06] LABS: IgA 238 mg/dL (61-437); IgG 701 mg/dL (700-1600); IgM 107 mg/dL (15-143)
[2017-11-27 23:10] LABS: ADENOVIRUS Negative (Negative); INFLUENZA A Negative (Negative); INFLUENZA B Negative (Negative); METAPNEUMOVIRUS Negative (Negative); PARAINFLUENZA 1 Negative (Negative); PARAINFLUENZA 2 Negative (Negative); PARAINFLUENZA 3 Negative (Negative); RHINOVIRUS Negative (Negative); RSV A Negative (Negative); RSV B Negative (Negative)
[2017-11-28] VITALS: BP 121/55
[2017-11-28 08:00] VITALS: BP 140/40
--- NOTE | 2017-11-28 08:26 | NUR ---
PATIENT HAS BEEN AGITATED AND IRRITABLE DURING SHIFT. PATIENT YELLING AT NURSING STAFF AND VERY DEMANDING AND ANXIOUS. PATIENT PULLING BIPAP MASK OFF. PATIENT 02 SATURATION DECREASES WHEN PATIENT REMOVES BIPAP. PATIENT VERY FORGETFUL AND CONFUSED AT TIMES. RESPIRATORY CALLED WHEN PATIENT REMOVED BIPAP AND 02 SATURATION DECREASED. BIPAP 02 INCREASED BY RESPIRATORY TO 90%. PATIENT TURNED EVERY 2 HRS AND NEEDED. IV IN LEFT AC-SL. IV ABT GIVEN WITHOUT ANY ADVERSE SIDE EFFECTS NOTED. PETTY TO DEPENDENT DRAINAGE WITH YELLOW URINE OUTPUT. MEDICATIONS GIVEN ORDERED AND CHARTED, ALTHOUGH PATIENT SLEEPING AND NOT WANTING TO TAKE SOME MEDICATIONS. FALL PRECAUTIONS IN PLACE AND HOURLY ROUNDS MADE. WILL CONTINUE WITH PLAN OF CARE AND NURSING TO MONITOR.
[2017-11-28 11:15] LABS: BE 3.4 mmol/L (-2 to +3); HCO3 27.8 mmol/L (22.0-26.0); PCO2 41.7 mmHg (35.0-45.0); PO2 69.7 mmHg (75.0-100.0); pH 7.442 (7.340-7.450)
--- NOTE | 2017-11-28 11:16 | EKG ---
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 /EPI
[2017-11-28 11:32] LABS: ABSOLUTE LYMPHOCYTES 0.9 thou/uL (0.8-5.3); HEMOGLOBIN 8.5 gm/dL (14.0-18.0); MCH 29.8 pg (26.0-34.0); MPV 7.8 fl. (7.2-11.1); RBC 2.85 mil/uL (4.50-6.00); RDW-CV 14.8 % (10.5-14.5)
--- NOTE | 2017-11-28 11:32 | NUR ---
PT TAKEN OFF BIPAP PLACE ON HEATED HIFLOW NC AT 50L AND 95%
[2017-11-28 11:33] LABS: ABSOLUTE BASOPHILS 0.2 thou/uL (0.0-0.2); ABSOLUTE EOSINOPHILS 0.1 thou/uL (0.0-0.7); ABSOLUTE MONOCYTES 0.9 thou/uL (0.0-1.2); ABSOLUTE NEUTROPHILS 15.1 thou/uL (1.6-8.1); BASOPHILS 1.2 %; EOSINOPHILS 0.5 %; HEMATOCRIT 25.7 % (42.0-52.0); LYMPHOCYTES 5.2 %; MCV 90.2 fL (80.0-100.0); MONOCYTES 5.3 %; NUCLEATED RBCS 0 /100WBC; PLATELET COUNT* 320 thou/uL (150-400); POLYS 87.8 %; WBC 17.2 thou/uL (4.0-11.0)
[2017-11-28 11:41] LABS: ALBUMIN 2.5 g/dL (3.4-5.0); CALCIUM 8.7 mg/dL (8.5-10.1); CREATININE 1.7 mg/dL (0.6-1.3); POTASSIUM 4.3 mmol/L (3.5-5.1); TOTAL BILIRUBIN 0.5 mg/dL (<0.1-1.0); TOTAL PROTEIN 6.1 g/dL (6.4-8.2)
[2017-11-28 12:05] LABS: IgA 219 mg/dL (61-437); IgG 670 mg/dL (700-1600); IgM 102 mg/dL (15-143)
[2017-11-28 16:11] LABS: ANTI-DNA SCREEN <1 IU/mL (0-9); ANTI-RNP 0.2 AI (0.0-0.9)
--- NOTE | 2017-11-28 16:15 | NUR ---
ASSUMED PT CARE AT 0700 PT IS ALERT TO SELF PT IS CONFUSED, NO SIGNS OF PAIN NOTED, PT IS ON BIPAP ON CONTINOUS O2 MONITOR SATS ABOVE 90, PT SWITCHED TO HIFLOW O2 PT SATS ABOVE 90, PT TURNED Q 2 HOURS, PT IS SA PVC ON MONITOR, PHYSICIAN ORDERED CT HEAD SPOKE WITH RESPIRTORY REGARDING HIFLOW RT STATES PT IS UNABLE TO LAY FLAT FOR TEST AND GO OFF HIFLOW PT WILL DESAT PAGED PHYSICIAN AWAITING CALL BACK, PT ROUNDED AROUND 1300 PT IS MORE ALERT AND AWAKE PT ATE SMALL AMOUNT OF LUNCH PT HAS PETTY PT TOOK MEDICATIONS WITHOUT ISSUE PT WAS UNABLE TO TAKE MEDICATIONS PO THIS AM DUE TO BIPAP. TECHS WENT TO TURN PT AROUND 1400 PT UNRESPONSIVE CODE CALLED AT 1415 SEE CODE SHEET CALLED REGARDING CHANGE IN PT STATUS AND NEEDED HERE IMMEDIATELY, PT AT 1431 HERE DOCTOR AND NURSE FORENSIC IDENTIFICATION SPECIALIST SPOKE WITH , THIS NURSE NOTIFIED MTN/HHA/PHYSICIAN CONSULTS, HOME CALLED AROUND 1630
[2017-11-28 23:09] LABS: ADENOVIRUS Negative (Negative); INFLUENZA A Negative (Negative); INFLUENZA B Negative (Negative); METAPNEUMOVIRUS Negative (Negative); PARAINFLUENZA 1 Negative (Negative); PARAINFLUENZA 2 Negative (Negative); PARAINFLUENZA 3 Negative (Negative); RHINOVIRUS Negative (Negative); RSV A Negative (Negative); RSV B Negative (Negative)
[2017-11-30 16:12] LABS: GLOBULIN TOTAL 3.1 g/dL (2.2-3.9); M-SPIKE 0.2 g/dL (Not Observed)
--- NOTE | 2017-12-04 09:08 | CON ---
[address] [address] CONSULTATION Name: JV DEMARCO V Room: [address] IN M.R.#: [id number] Admission: 11/22/17 Attend Phys: Gisela Fermin MD Discharge: 11/28/17 Date of : 33 Report #: [id number] THIS REPORT FOR: //name// CC: Gisela Morrissey MD INDICATION: Congestive heart failure. HISTORY OF PRESENT ILLNESS: The patient is a very pleasant 82-year-old gentleman who was admitted to the hospital 3 days ago with acute respiratory failure. He was felt initially to have pneumonia and has been treated with antibiotics, steroids, and supplemental oxygen. Chest x-ray today suggested a component of pulmonary vascular congestion. His NT-proBNP is elevated consistent with heart failure. The patient had an echocardiogram 2 days ago that showed preserved left ventricular systolic function. I believe he likely has a component of diastolic heart failure. He denies any history of coronary artery disease or myocardial infarction, but does report history of stroke in the past. He has dyspnea on exertion, occasional orthopnea. He is not having shortness of breath at rest. He denies chest pain. He is without other cardiac complaint at this time. PAST MEDICAL HISTORY: 1. COPD. 2. Type 2 diabetes mellitus. 3. Diastolic heart failure. 4. History of stroke. 5. Chronic renal insufficiency. 6. Possible coronary artery disease from records, but the patient denies this. 7. Hyperlipidemia. PAST SURGICAL HISTORY: 1. Right knee surgery remotely. 2. Left shoulder rotator cuff repair remotely. 3. Skin cancer removed x 2. FAMILY HISTORY: Noncontributory. SOCIAL HISTORY: The patient quit smoking remotely. He does not drink alcohol. CURRENT MEDICATIONS: Furosemide 40 mg p.o. b.i.d., sliding scale insulin, iron 150 mg daily, potassium chloride 10 mEq daily, gabapentin 300 mg t.i.d., Lovenox 30 mg at bedtime, tramadol 100 mg b.i.d., tizanidine 4 mg q.i.d., Combivent inhaler q.4h., Flomax 0.4 mg daily, spironolactone 25 mg daily, Plavix 75 mg daily, aspirin 81 mg daily, [place] [address] CONSULTATION Name: JV DEMARCO V Room: [address]#: [id number] Admission: 11/22/17 Attend Phys: Gisela Fermin MD Discharge: 11/28/17 Date of : 33 Report #: [id number] PHYSICAL EXAMINATION: VITAL SIGNS: Blood pressure 112/57, pulse 64 and regular. GENERAL: This is a pleasant elderly gentleman in no distress. Mood and affect appropriate. HEENT: The patient is wearing glasses. Extraocular muscles intact. Mucous membranes are moist. NECK: Shows no obvious jugular venous distention. CHEST: Reveals coarse breath sounds bilaterally. CARDIOVASCULAR: Reveals a regular rhythm without gallop or murmur. ABDOMEN: Reveals normal bowel sounds. The abdomen is soft and nontender. EXTREMITIES: Trace ankle edema. Chest x-ray shows mild cardiomegaly with pulmonary vascular congestion. LABORATORY DATA: Significant for sodium 132, creatinine 1.6 with a baseline of 1.5. Troponin less than 0.06. NT-proBNP 1434. Hemoglobin 7.8, platelet count 262,000, white blood cell count 10.0. IMPRESSION AND RECOMMENDATIONS: 1. Acute on chronic diastolic heart failure. Agree with diuresis with furosemide. The patient appears to be diuresing fairly adequately at this time. No further cardiac evaluation with the exception of possible repeat echocardiogram 6-12 months later. 2. Acute respiratory failure, likely multifactorial in nature including pneumonia and diastolic heart failure, improving. 3. History of stroke. The patient is on a combination of Plavix and aspirin will continue. 4. Diabetes per primary physician. <ELECTRONICALLY SIGNED> By: Spua Mohamud MD, FACC 12/04/17 0908 1845 47Micmoses Mohamud MD, FACC /nt
== END 2017-11-28 14:31 | DRG 871 ==
LOC: M.ERS 00:23 → M.TBA-ER 01:13 → M.2W 01:13 → M.ICU 11-26 15:02 → M.2W 11-27 18:55
PROVIDERS: Emergency Medicine; Family Medicine; Internal Medicine; Internal Medicine Cardiovascular Disease; Internal Medicine Critical Care Medicine; Internal Medicine Pulmonary Disease; Specialist; ADMIT Family Medicine
PROC: 5A09357 Assistance with Respiratory Ventilation, Less than 24 Consecutive Hours, Continuous Positive Airway Pressure (ICD-10-PCS; principal; 2017-11-25)
PROC: 5A09357 Assistance with Respiratory Ventilation, Less than 24 Consecutive Hours, Continuous Positive Airway Pressure (ICD-10-PCS; 2017-11-27)
PROC: 5A09357 Assistance with Respiratory Ventilation, Less than 24 Consecutive Hours, Continuous Positive Airway Pressure (ICD-10-PCS; 2017-11-28)
DX: A41.9 Sepsis, unspecified organism (principal); J18.9 Pneumonia, unspecified organism; J96.01 Acute respiratory failure with hypoxia; I50.43 Acute on chronic combined systolic (congestive) and diastolic (congestive) heart failure; I13.0 Hypertensive heart and chronic kidney disease with heart failure and stage 1 through stage 4 chronic kidney disease, or unspecified chronic kidney disease; E87.1 Hypo-osmolality and hyponatremia; E46 Unspecified protein-calorie malnutrition; N18.3 Chronic kidney disease, stage 3 (moderate); I46.9 Cardiac arrest, cause unspecified; Y95 Nosocomial condition; E11.65 Type 2 diabetes mellitus with hyperglycemia; T38.0X5A Adverse effect of glucocorticoids and synthetic analogues, initial encounter; J44.9 Chronic obstructive pulmonary disease, unspecified; G47.33 Obstructive sleep apnea (adult) (pediatric); K21.9 Gastro-esophageal reflux disease without esophagitis; Z96.652 Presence of left artificial knee joint; E11.22 Type 2 diabetes mellitus with diabetic chronic kidney disease; M19.90 Unspecified osteoarthritis, unspecified site; D64.9 Anemia, unspecified; Z87.891 Personal history of nicotine dependence; Z86.73 Personal history of transient ischemic attack (TIA), and cerebral infarction without residual deficits; Z85.828 Personal history of other malignant neoplasm of skin; Y92.89 Other specified places as the place of occurrence of the external cause; Z68.36 Body mass index [BMI] 36.0-36.9, adult; Z79.4 Long term (current) use of insulin; Z79.02 Long term (current) use of antithrombotics/antiplatelets; Z79.82 Long term (current) use of aspirin; Z79.84 Long term (current) use of oral hypoglycemic drugs; Z79.899 Other long term (current) drug therapy; Z88.8 Allergy status to other drugs, medicaments and biological substances